=== PATIENT | female | born 1965 | race American Indian/Alaskan Native ===

== ENCOUNTER 2016-11-10 14:36 | Emergency (ER) | payer OTHER ==
[2016-11-10 14:44] VITALS: PULSE 64; RESP 20; TEMP 98.1; O2SAT 98
--- NOTE | 2016-11-10 15:04 | C.PDOC ---
History Of Present Illness 51 yo female come in for evaluation of Left ankle pain developed since yesterday "[place]". Pt admits, able to bear weight on injured foot with mild discomfort. Otherwise, pt denies fall, headache, dizziness, CP, SOB, denies obvious deformity, weakness, sensory or vascular deficits to B/L LEs. Ambulate to Ed for evaluation, not in any apparent distress. Time Seen by Provider: 11/10/16 14:58 Chief Complaint (Nursing): Lower Extremity Problem/Injury History Per: Patient Past Medical History Reviewed: Historical Data, Nursing Documentation, Vital Signs Vital Signs: Last Vital Signs Temp 98.1 F 11/10/16 14:39 Pulse 64 11/10/16 14:39 Resp 20 11/10/16 14:39 BP 133/78 11/10/16 16:18 Pulse Ox 98 11/10/16 15:59 - Medical History PMH: HTN Family History: States: No Known Family Hx - Social History Hx Alcohol Use: No Hx Substance Use: No - Immunization History Hx Tetanus Toxoid Vaccination: No Hx Influenza Vaccination: No Hx Pneumococcal Vaccination: Yes Review Of Systems Except As Marked, All Systems Reviewed And Found Negative. Constitutional: Negative for: Fever, Chills Musculoskeletal: Positive for: Foot Pain Neurological: Negative for: Weakness, Numbness Physical Exam - Physical Exam Appears: Well, Non-toxic, No Acute Distress Skin: Normal Color, Warm Extremity: Normal ROM (B/L LEs.), Tenderness (mild tenderness over lateral malelolus [place] tankle), No Pedal Edema, No Calf Tenderness (B/L), No Deformity, Swelling (B/L trace ankle edema R>L) Neurological/Psych: Oriented x3, Normal Speech, Normal Motor, Normal Sensation, Normal Reflexes ED Course And Treatment O2 Sat by Pulse Oximetry: 98 Pulse Ox Interpretation: Normal - Other Rad lEFT ANKLE/FOOT X-Ray: Interpreted by Me, Viewed By Me Interpretation: (+)avulsion fx to medial aspect, likely old. No acute fx or dislocation Progress Note: On re-eavl, pt is afebrile, hemodynamicaly stable. Non-toxic. AMbulatory in ED. LLE: exam c/w ankle sprain, no acute fx or dislocation. NO calf tenderness. FAROM, no neurovascular deficits. Xray review (-) acute fx. Pt has HTN on triage, pt admits complaint with BP medication. Air cast applied to left ankle. Pt advised,. ref. to F/U with PMD, Ortho in 2-3 days for re- eavl. return if any new changes. Disposition Counseled Patient/Family Regarding: Studies Performed, Diagnosis, Need For Followup, Rx Given - Disposition Referrals: [facility] [Outside] Disposition: HOME/ ROUTINE Disposition Time: 15:30 Condition: STABLE Additional Instructions: KEEP FEET ELEVATED AVOID PROLONG WALING TAKE TYLENOL NEED FOR PAIN TAKE BLOOD PRESSURE MEDICATION AT HOME PRESCRIBED FOLLOW UP WITH PMD AND ORTHOPEDIST IN 2-3 DAYS FOR RE-EVALUATION. RETURN TO ED IF ANY WORSENING OR NEW CHANGES. Instructions: Ankle Sprain (ED), Ankle Stirrup Splint (ED), Hypertension (ED) Forms: [employer] ([employer]) [employer] ([place]), Work Excuse - Clinical Impression Clinical Impression: Ankle sprain, HTN (hypertension)
[2016-11-10 16:19] VITALS: BP 133/78
--- NOTE | 2016-11-10 16:52 | RAD ---
PROCEDURE: Left Ankle Radiographs. HISTORY: injury COMPARISON: None FINDINGS: BONES: No evidence of acute displaced fracture nor dislocation. . There is a small elliptical shaped corticated bony density within the soft tissues subjacent to the medial malleolus which could represent some old posttraumatic mineralization or old on fused avulsion injury. There is moderate diffuse bilateral soft tissue swelling. If symptoms persist or occult fracture suspected clinically recommend repeat radiographs in 5-10 days as most fractures should become radiographically evident in this timeframe. Small on plantar surface enthesophyte. JOINTS: Normal. No osteoarthritis. Ankle mortise maintained. Talar dome intact SOFT TISSUES: Normal. OTHER FINDINGS: None. IMPRESSION: No evidence of acute displaced fracture nor dislocation. . There is a small elliptical shaped corticated bony density within the soft tissues subjacent to the medial malleolus which could represent some old posttraumatic mineralization or old on fused avulsion injury. There is moderate diffuse bilateral soft tissue swelling. Followup studies recommended as detailed above
== END 2016-11-10 16:23 | disposition home or self-care (01) ==
LOC: C.ER 14:36
DX: S93.402A Sprain of unspecified ligament of left ankle, initial encounter (principal); X50.0XXA Overexertion from strenuous movement or load, initial encounter; Y93.01 Activity, walking, marching and hiking; Y92.89 Other specified places as the place of occurrence of the external cause; I10 Essential (primary) hypertension